=== PATIENT | female | born 1985 | race Caucasian/White ===

== ENCOUNTER 2017-07-02 22:26 | Emergency (ER) | payer BC ==
[~2017-07-02] VITALS: Ht 154.9 cm; Wt 62.0 kg
[~2017-07-02 22:26] MED LIST: ONDA8 PO; PERC5TAB12 PO
[2017-07-02 22:28] VITALS: BP 185/100; PULSE 92; RESP 16; TEMP 98.6; O2SAT 98
[2017-07-02] MEDS ORDERED: SODIUM CHLOR 0.9% 1000 ML INJ 1,000 ML IV ONE (23:00)
--- NOTE | 2017-07-02 23:01 | PD ---
HPI Chief Complaint: Abdominal Pain Time Seen by Provider: 22:52 Travel History International Travel<30 days: No Contact w/Intl Traveler<30days: No Traveled to known affect area: No History of Present Illness HPI The patient is a 31 year old female who presents to the [facility] emergency department with a history of vaginal spotting of blood that began 2 weeks ago. She reports that it is not unusual for her to have irregular menstrual cycles. She reports that she made an appointment with her VP & GENERAL COUNSEL, Dr. calhoun her tomorrow, however she became concerned that 2-3 days ago she began to have left sided pelvic pain. Her symptoms are similar to her prior tubal . Her pain is coming and going. It is described as " uncomfortable feeling". It is worse with movement. She is a , 1 ectopic with rupture and emergency surgery. She has been having chills, nausea with vomiting a few times. The patient denies any history of fever, cough, congestion, neck pain, chest pain, shortness of breath, diarrhea, urinary symptoms, or neurologic symptoms. Her last BM was today. No blood in her stool. LMP: 03/27-04/01. irregular cycles. PFSH Past Medical History Narrative Medical The patient's past medical history is significant for irregular menstrual cycles and a history of tubal . 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 Calhoun Medical History: Denies Significant Hx Blood Disorders: No Cancer: No Cardiovascular Problems: No Chemotherapy: No Diabetes: No Patient Takes Glucophage: No Diminished Hearing: No Endocrine: No Genitourinary: No Immune Disorder: No Musculoskeletal: No Neurologic: No Psychiatric: No Reproductive: No Respiratory: No Immunizations Current: Yes Radiation Therapy: No Tetanus Vaccination: > 5 Years Influenza Vaccination: No ?: Unknown LMP: 03/31/17 : 1 Para: 0 Miscarriage: 0 : 0 Ectopic : Yes Past Surgical History Narrative Surgical The patient's past surgical history is significant for tubal with emergency surgery and resection of right fallopian tube. Gynecologic Surgery: Yes (RELATED TO ECTOPIC ) Other Surgery: No Social History Alcohol Use: Yes (OCCASIONAL) Tobacco Use: No Substance Use: No Allergies-Medications (Allergen,Severity, Reaction): Coded Allergies: No Known Allergies (Unverified Adverse Reaction, Unknown, 11/6/17) Reported Meds & Prescriptions Reported Meds & Active Scripts Active Flagyl (Metronidazole) 500 Mg Tab 500 Mg PO BID Review of Systems Except as stated in HPI: all other systems reviewed are Neg General / Constitutional: No: Fever Eyes: No: Visual changes HENT: No: Headaches Cardiovascular: No: Chest Pain or Discomfort Respiratory: No: Shortness of Breath Gastrointestinal: Positive: Nausea, Vomiting, Abdominal Pain, No: Diarrhea, Changes in Bowel Habits, Indigestion, Loss of Appetite Genitourinary: Positive: Pelvic Pain, Vaginal Bleeding, No: Dysuria Musculoskeletal: No: Pain Skin: No Rash Neurologic: No: Weakness Psychiatric: No: Depression Endocrine: No: Polydipsia Hematologic/Lymphatic: No: Easy Bruising Physical Exam Narrative General: The patient is a well-developed well-nourished female in no acute distress. Head and Neck exam: Head is normocephalic atraumatic. Eyes: EOMI, pupils are equal round and reactive to light. Nose: Midline septum with pink mucous membranes Mouth: Dentition unremarkable. Moist mucus membranes. Posterior oropharynx is not erythematous. No tonsillar hypertrophy. Uvula midline. Airway patent. Neck: No palpable lymphadenopathy. No nuchal rigidity. No thyromegaly. Cardiovascular: Regular rate and rhythm without murmurs, gallops, or rubs. Lungs: Clear to auscultation bilaterally. No wheezes, rhonchi, or rales. Abdomen: Soft, with reported discomfort on palpation in the left side of the pelvis, no other tenderness on palpation of the other quadrants of the abdomen. No guarding , rebound, or rigidity. Normal bowel sounds are audible. No tenderness on palpation of McBurney's point. Extremities: No clubbing, cyanosis, or edema. 2+ pulses in all 4 extremities. No calf tenderness on palpation. Back: No spinous process tenderness to palpation. No costovertebral angle tenderness to palpation. Neurologic Exam: Grossly nonfocal. Skin Exam: No rash noted. Intact skin that is warm and dry. Gynecologic exam: The patient was placed in the dorsal lithotomy position. Her external genitalia were examined. She had no evidence of rash or lesions. The speculum was placed into her vagina and the cervix was identified. She has some older appearing blood in the posterior vaginal vault. No cervical friability. On Bimanual exam: she has no cervical motion tenderness. No adnexal prominence, however she does have tenderness on palpation down in the left adnexa. No uterine tenderness or enlargement noted on palpation. Data Data Last Documented VS Vital Signs Date Time Temp Pulse Resp B/P (MAP) Pulse Ox O2 Delivery O2 Flow Rate FiO2 07/02/17 22:28 98.6 92 16 185/100 (128) 98 Orders Orders Complete Blood Count With Diff (07/02/17 23:00) Comprehensive Metabolic Panel (07/02/17 23:00) Gc And Chlamydia Pcr (07/02/17 23:00) Wet Prep Profile (07/02/17 23:00) Urinalysis - C+S If Indicated (07/02/17 23:00) Iv Access Insert/Monitor (07/02/17 23:00) Ecg Monitoring (07/02/17 23:00) Sodium Chlor 0.9% 1000 Ml Inj (Ns 1000 M (07/02/17 23:00) Ed Urine Pregnancytest Poc (07/02/17 23:00) Us Pelvis Comp W Doppler (07/03/17 23:29) Ed Discharge Order (07/03/17 01:37) Labs Laboratory Tests Test 07/02/17 23:00 07/02/17 23:22 07/03/17 00:25 White Blood Count 11.1 TH/MM3 Red Blood Count 4.73 MIL/MM3 Hemoglobin 14.9 GM/DL Hematocrit 43.0 % Mean Corpuscular Volume 90.8 FL Mean Corpuscular Hemoglobin 31.4 PG Mean Corpuscular Hemoglobin Concent 34.6 % Red Cell Distribution Width 12.7 % Platelet Count 230 TH/MM3 Mean Platelet Volume 9.5 FL Neutrophils (%) (Auto) 55.3 % Lymphocytes (%) (Auto) 34.4 % Monocytes (%) (Auto) 7.4 % Eosinophils (%) (Auto) 2.2 % Basophils (%) (Auto) 0.7 % Neutrophils # (Auto) 6.1 TH/MM3 Lymphocytes # (Auto) 3.8 TH/MM3 Monocytes # (Auto) 0.8 TH/MM3 Eosinophils # (Auto) 0.2 TH/MM3 Basophils # (Auto) 0.1 TH/MM3 CBC Comment DIFF FINAL Differential Comment Blood Urea Nitrogen 16 MG/DL Creatinine 0.92 MG/DL Random Glucose 104 MG/DL Total Protein 8.2 GM/DL Albumin 4.0 GM/DL Calcium Level 8.9 MG/DL Alkaline Phosphatase 119 U/L Aspartate Amino Transf (AST/SGOT) 34 U/L Alanine Aminotransferase (ALT/SGPT) 65 U/L Total Bilirubin 0.4 MG/DL Sodium Level 139 MEQ/L Potassium Level 3.9 MEQ/L Chloride Level 102 MEQ/L Carbon Dioxide Level 29.2 MEQ/L Anion Gap 8 MEQ/L Estimat Glomerular Filtration Rate 70 ML/MIN Clue Cells (Wet Prep) PRESENT Vaginal Trichomonas (Wet Prep) NONE SEEN Vaginal Yeast (Wet Prep) NONE SEEN Chlamydia trachomatis DNA (PCR) NOT DETECTED Neisseria gonorrhoeae DNA (PCR) NOT DETECTED Urine Color YELLOW Urine Turbidity CLEAR Urine pH 7.0 Urine Specific [place] 1.022 Urine Protein NEG mg/dL Urine Glucose (UA) NEG mg/dL Urine Ketones NEG mg/dL Urine Occult Blood MOD Urine Nitrite NEG Urine Bilirubin NEG Urine Urobilinogen 2.0 MG/DL Urine Leukocyte Esterase NEG Urine RBC 2 /hpf Urine WBC 3 /hpf Urine Squamous Epithelial Cells <1 /hpf Urine Bacteria FEW /hpf Urine Mucus FEW /lpf Microscopic Urinalysis Comment CULT NOT INDICATED MDM Medical Decision Making Medical Screen Exam Complete: Yes Emergency Medical Condition: Yes Medical Record Reviewed: Yes Differential Diagnosis Ectopic , versus ovarian cyst, versus vaginitis, versus dysfunctional uterine bleeding Narrative Course During the course of the patients emergency department visit, the patients history, examination, and differential diagnosis were reviewed with the patient. The patient was placed on a sports cartoonist with oximetry and frequent blood pressure monitoring. The patient had IV access obtained and blood work sent for analysis. The patient was initially provided normal saline 1 L IV fluid bolus. 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 The patient reports that she heard a has a follow-up appointment scheduled with her chief information security officer for tomorrow. The patient will be given a copy of her ultrasound findings. The patient will be discharged home with a prescription for an anti-inflammatory pain medication, Flagyl for bacterial vaginosis. The patient is resting comfortably and feels better, is alert and in no distress. The patients results and examination findings were discussed with the patient. The repeat examination is unremarkable and benign. The history, exam, diagnostic testing, and current condition do not suggest any significant pathology to warrant further testing, continued ED treatment, admission, or surgical evaluation at this point. The vital signs have been stable. The patient does not have uncontrollable pain, intractable vomiting, or other significant symptoms. The patient's condition is stable and appropriate for discharge. The patient will pursue further outpatient evaluation with a primary care physician or other designated or consulting physician as indicated in the discharge instructions. The patient expressed understanding and was agreeable with this plan. Diagnosis Primary Impression: Dysfunctional uterine bleeding Additional Impression: Bacterial vaginosis Referrals: Chapo Calhoun MD 1 day Patient Instructions: Bacterial Vaginosis (ED), Dysfunctional Uterine Bleeding (ED), General Instructions Med/Other Pt SpecificInfo: Prescription(s) given Scripts Metronidazole (Flagyl) 500 Mg Tab 500 MG PO BID for Infection, #14 TAB 0 Refills Prov: Anjelica Hannah MD 07/03/17 Disposition: 01 DISCHARGE HOME Condition: Stable Anjelica Hannah MD Jul 02, 2017 23:01
[2017-07-02 23:43] LABS: AUTOMATED NEUTROPHIL # 6.1 TH/MM3 (1.8-7.7); BASOPHIL # 0.1 TH/MM3 (0-0.2); BASOPHIL % 0.7 % (0.0-2.0); EOSINOPHIL # 0.2 TH/MM3 (0-0.4); EOSINOPHIL % 2.2 % (0.0-4.0); HEMO FLAGS DIFF FINAL; LYMPH % 34.4 % (9.0-44.0); LYMPHOCYTE # 3.8 TH/MM3 (1.0-4.8); MEAN CELL VOLUME 90.8 FL (80.0-100.0); MEAN CORPUSCULAR HEMOGLOBIN 31.4 PG (27.0-34.0); MEAN CORPUSCULAR HGB CONC 34.6 % (32.0-36.0); MONO % 7.4 % (0.0-8.0); NEUT % 55.3 % (16.0-70.0); PLATELET COUNT 230 TH/MM3 (150-450); RED BLOOD COUNT 4.73 MIL/MM3 (4.00-5.30); RED CELL DISTRIBUTION WIDTH 12.7 % (11.6-17.2); WHITE BLOOD COUNT 11.1 TH/MM3 (4.0-11.0)
[2017-07-03 00:05] LABS: ALKALINE PHOSPHATASE 119 U/L (45-117); TOTAL BILIRUBIN ADULT 0.4 MG/DL (0.2-1.0)
[2017-07-03 00:15] LABS: ALT (GPT) 65 U/L (10-53); ANION GAP 8 MEQ/L (5-15); AST (GOT) 34 U/L (15-37); BICARBONATE 29.2 MEQ/L (21.0-32.0); BLOOD UREA NITROGEN 16 MG/DL (7-18); CHLORIDE 102 MEQ/L (98-107); GLOMERULAR FILTRATION RATE 70 ML/MIN (>89); POTASSIUM 3.9 MEQ/L (3.5-5.1); SODIUM (NA) 139 MEQ/L (136-145)
[2017-07-03 00:43] LABS: BACTERIA, URINE FEW /hpf; BLOOD, URINE MOD (NEG); COMMENT (UR) CULT NOT INDICATED; CULTURE IF INDICATED CULT NOT INDICATED; GLUCOSE,URINE NEG (NEG); KETONE, URINE NEG (NEG); MUCUS URINE FEW /lpf (OCC); NITRITE,URINE NEG (NEG); SQUAMOUS EPITHELIAL CELL URINE <1 /hpf (0-5); URINE COLOR YELLOW (YELLW/STRAW)
[2017-07-03 01:07] LABS: CHLAMYDIA PCR NOT DETECTED (NOT DETECT); NEISSERIA PCR NOT DETECTED (NOT DETECT)
--- NOTE | 2017-07-03 01:26 | RADRPT ---
EXAM DATE/TIME: 07/03/2017 00:54 [facility] COMPARISON: No previous studies available for comparison. INDICATIONS : Pelvic pain and bleeding. MEDICAL HISTORY : . Ectopic . SURGICAL HISTORY : Laproscopic right salpingectomy. ENCOUNTER: Subsequent ACUITY: 2 weeks PAIN SCORE: 3/10 LOCATION: Bilateral pelvis MEASUREMENTS: UTERUS: 6.1 x 4.9 x 3.4 cm ENDOMETRIAL STRIPE: 11 mm RIGHT OVARY: 2.9 x 2.2 x 1.9 cm LEFT OVARY: 2.8 x 2.2 x 2.0 cm FINDINGS: Ultrasound pelvis and uterus are normal size, shape and echogenicity without focal lesion. No free fl uid or adnexal masses are seen. Normal Doppler flow is present bilaterally. There is mild thickening of endometrial stripe Examination of right ovary demonstrates normal size, shape and echogenicity. Examination of the left ovary demonstrates normal size shape and echogenicity. CONCLUSION: No evidence of torsion. Mild thickening of the endometrial stripe nonspecific in appearance Jason Gallegos MD on July 03, 2017 at 1:23 Board Certified Radiologist. This report was verified electronically.
[2017-07-03] MEDS ORDERED: METR-1 PO (01:38)
[2017-07-03] MEDS ORDERED: NAPR-810 PO (01:46)
== END 2017-07-03 02:06 | disposition home or self-care (01) ==
LOC: NEPC 22:26
DX: N93.8 Other specified abnormal uterine and vaginal bleeding (principal); N76.0 Acute vaginitis; B96.89 Other specified bacterial agents as the cause of diseases classified elsewhere; R10.2 Pelvic and perineal pain
CPT/HCPCS: 76856; 80053; 81001; 84703; 85025; 87210; 87491; 87591; 93975; 99285; J7030